=== PATIENT | male | born 1955 | race Caucasian/White ===

== ENCOUNTER 2017-02-05 09:14 | Inpatient (IN) | payer OTHER ==
[~2017-02-05] VITALS: Ht 167.6 cm; Wt 63.5 kg
[~2017-02-05 09:14] MED LIST: BENA20TA10 PO; CLON0.1T79 PO; DIVA250T PO; FOLI1TAB19 PO; ORE25 PO; PANT40EC PO; TOP100 PO; [UNRECOGNIZED DRUG - CODE] PO
--- NOTE | 2017-02-05 09:14 | NUR ---
PT BIBA TO BED 4 AT THIS TIME.
[2017-02-05 09:23] VITALS: BP 113/69
[2017-02-05] MEDS ORDERED: BACL10TA4 PO (09:26)
[2017-02-05] MEDS ORDERED: CALC650T90 PO (09:26)
[2017-02-05] MEDS ORDERED: HYDR-2912 PO (09:28)
[2017-02-05] MEDS ORDERED: ORE25 PO ×2 (09:28→13:46)
[2017-02-05] MEDS ORDERED: IBUP-1842 PO (09:29)
[2017-02-05] MEDS ORDERED: QUET200T PO (09:30)
[2017-02-05] MEDS ORDERED: METO25TA PO ×2 (09:30→13:46)
[2017-02-05] MEDS ORDERED: VITD1000 PO (09:31)
--- NOTE | 2017-02-05 09:33 | NUR ---
Note undone in EDM - 02/05/17 at 0956 by CAMILO PATIENT PRESENTS TO ED PER ELECTROPLATING TECHNICIAN PATIENT FELL BACKWARDS WHILE WALKING OUTSIDE FACILITY. NO LOC,ABRASION LT. SIDE HEAD AND LT. FOREARM.BP FIELD 73/60 NSS 500 IVF BOLUS,BP 105/62. BS FIELD 99. NEG. MLAPSS.SB FIELD HR 48.HX: MILD MR,HTN,,DEPRESSION,EPILEPSY. FROM [facility] . DENIES N/V/D; SKIN IS PINK/WARM/DRY; AAOX4 WITH EVEN AND STEADY GAIT; LUNGS CLEAR BL; HR EVEN AND REGULAR; PT DENIES ANY FEVER, CP, SOB, OR COUGH AT THIS TIME; PATIENT STATES PAIN OF 0/10 AT THIS TIME; VSS; PATIENT POSITIONED FOR COMFORT; HOB ELEVATED; BEDRAILS UP X2; BED DOWN. ER MD MADE AWARE OF PT STATUS.
--- NOTE | 2017-02-05 09:33 | NUR ---
PATIENT PRESENTS TO ED PER SITE IDENTIFICATION SPECIALIST PATIENT FELL BACKWARDS WHILE WALKING OUTSIDE FACILITY. NO LOC,ABRASION LT. SIDE HEAD AND LT. FOREARM.BP FIELD 73/60 NSS 500 IVF BOLUS,BP 105/62. BS FIELD 99. NEG. MLAPSS.SB FIELD HR 48.HX: MILD MR,HTN,,DEPRESSION,EPILEPSY. FROM [facility] . DENIES N/V/D; SKIN IS PINK/WARM/DRY; AAOX4 BIB EMS; LUNGS CLEAR BL; HR EVEN AND REGULAR; PT DENIES ANY FEVER, CP, SOB, OR COUGH AT THIS TIME; PATIENT STATES PAIN OF 0/10 AT THIS TIME; VSS; PATIENT POSITIONED FOR COMFORT; HOB ELEVATED; BEDRAILS UP X2; BED DOWN. ER MD MADE AWARE OF PT STATUS.
[2017-02-05] MEDS ORDERED: NACL 0.9% 1,000 ML IV ONE (09:45)
--- NOTE | 2017-02-05 09:55 | NUR ---
[facility]
[2017-02-05 09:58] LABS: BASOPHILS # (AUTO) 0.2 K/uL (0.00-0.22); BASOPHILS % (AUTO) 3.2 % (0.0-2.0); EOSINOPHILS # (AUTO) 0.1 K/uL (0-0.4); EOSINOPHILS % (AUTO) 1.6 % (0.0-4.0); HEMATOCRIT 37.7 % (36-52); HEMOGLOBIN 12.2 g/dL (12.0-18.0); LYMPHOCYTES # (AUTO) 1.7 K/uL (2.0-11.5); LYMPHOCYTES % (AUTO) 27.7 % (20.5-51.1); MEAN CORPUSCULAR HEMOGLOBIN 29 pg (27-31); MEAN CORPUSCULAR HGB CONC 32 g/dL (33-37); MEAN CORPUSCULAR VOLUME 90 fL (80-94); MONOCYTES # (AUTO) 0.2 K/uL (0.8-1.0); MONOCYTES % (AUTO) 3.8 % (1.7-9.3); NEUTROPHILS # (AUTO) 4.1 K/uL (1.8-7.7); NEUTROPHILS % (AUTO) 63.7 % (42.2-75.2); PLATELET COUNT (AUTO) 129 K/uL (140-450); RED BLOOD CELL COUNT(AUTO) 4.18 MIL/uL (4.20-6.10); RED CELL DISTRIBUTION WIDTH 13.2 % (11.6-13.7); WHITE BLOOD COUNT (AUTO) 6.3 K/uL (4.8-10.8)
[2017-02-05 10:19] LABS: ALBUMIN 3.1 g/dL (3.4-5.0); ANION GAP 11.1 (8-16); CARBON DIOXIDE 28.6 mmol/L (21-32); TOTAL BILIRUBIN 0.3 mg/dL (0.0-1.0)
[2017-02-05 10:21] LABS: POTASSIUM 2.7 mmol/L (3.5-5.1)
[2017-02-05] MEDS ORDERED: POTASSIUM CHLORIDE 20% 40 MEQ/15 ML UDC PO ONE (10:45)
--- NOTE | 2017-02-05 11:32 | NUR ---
RN UNAVAILABLE FOR REPORT AT THIS TIME
[2017-02-05 11:33] LABS: APPEARANCE,URINE CLEAR (CLEAR); BILIRUBIN,URINE NEGATIVE (NEGATIVE); BLOOD, URINE NEGATIVE (NEGATIVE); COLOR,URINE YELLOW (YELLOW); LEUKOCYTE ESTERASE ,URINE NEGATIVE (NEGATIVE); NITRITE, URINE NEGATIVE (NEGATIVE); PH,URINE 7.5 (5.0-9.0); UGLUCOSE NEGATIVE (NEGATIVE)
[2017-02-05] MEDS ORDERED: HYDROcodone/APAP 7.5/325 MG 1 TAB PO PRN (11:50)
[2017-02-05] MEDS ORDERED: ONDANSETRON 4 MG/2 ML VIAL IVP PRN (11:50)
[2017-02-05] MEDS ORDERED: LORazepam 2 MG/ML VIAL IM/IVP PRN (11:50)
[2017-02-05] MEDS ORDERED: ACETAMINOPHEN 325 MG TAB PO PRN (11:50)
[2017-02-05 12:00] LABS: BARBITURATE, URINE NEG. ng/ml (NEG <=200); BENZODIAZEPINE, URINE NEG. ng/mL (NEG <=200); CANNABINOID, URINE NEG. ng/mL (NEG <=50); COCAINE, URINE NEG. ng/mL (NEG <=300); OPIATE, URINE NEG. ng/mL (NEG <=2000); PHENCYCLIDINE SCREEN,URINE NEG. ng/mL (NEG <=25)
--- NOTE | 2017-02-05 12:04 | NUR ---
Patient will be admitted to care of DR EDGAR. Admited to TELE. Will go to room 124B. Belongings list completed. Report to LUIS DEL TORO.
[2017-02-05 12:20] VITALS: BP 134/85
[2017-02-05] MEDS: NACL 0.9% 1,000 ML IV SCH ×2 (12:20→21:46)
--- NOTE | 2017-02-05 12:25 | NUR ---
PATIENT ADMITTED TO THE UNIT FROM ER. PATIENT AWAKE, ALERT AND ORIENTED. PATIENT ON ROOM AIR. NO SOB, NO S/S OF DISTRESS NOTED. PATIENT DENIES ANY PAIN. PATIENT REPORTS OF BEING DROWSY. VSS WITHIN NORMAL LIMITS. ABRASION NOTED TO THE BACK OF THE HEAD. ABRASION OPEN TO AIR. NO DRAINAGE OR BLEEDING NOTED. PATIENT PLACED ON TELE MONITORING. BED LOWERED WITH CALL LIGHT WITHIN REACH. WILL CONTINUE TO MONITOR
[2017-02-05 12:27] LABS: FREE T4 (FREE THYROXINE) 0.78 ng/dL (0.76-1.46); PHOSPHORUS 3.1 mg/dL (2.5-4.9); THYROID STIMULATING HORMONE 3.3 uIU/mL (0.34-3.74)
--- NOTE | 2017-02-05 13:10 | NUR ---
PATIENT TOLERATED REGULAR DIET WELL. NO S/S OF DISTRESS NOTED
[2017-02-05] MEDS ORDERED: IBUPROFEN 400 MG TAB PO PRN (13:30)
[2017-02-05] MEDS ORDERED: TOP100 PO ×3 (13:42→13:43)
[2017-02-05] MEDS ORDERED: PANT20EC12 PO (13:44)
[2017-02-05] MEDS ORDERED: BENA40TA PO (13:44)
[2017-02-05] MEDS ORDERED: CLON0.2T43 PO (13:46)
[2017-02-05] MEDS ORDERED: MECLIZINE 25 MG TAB PO PRN (14:25)
--- NOTE | 2017-02-05 15:45 | NUR ---
PATIENT ASLEEP IN BED. NO S/S OF DISTRESS NOTED
[2017-02-05 16:00] VITALS: BP 166/81
[2017-02-05] MEDS: TOPIRAMATE 25 MG TAB PO SCH (17:24)
[2017-02-05] MEDS: cloNIDine 0.1 MG TAB PO SCH (17:25)
[2017-02-05] MEDS: CALCIUM CARBONATE 500 MG TAB.CHEW PO SCH (17:26)
--- NOTE | 2017-02-05 19:32 | NUR ---
PATIENT REPORT GIVEN AT BEDSIDE. PATIENT ENDORSED IN STABLE CONDITION
--- NOTE | 2017-02-05 19:33 | NUR ---
RECD. RESTING IN BED, AWAKE, A/OX2, RESPIRATION EVEN AND UNLABORED. IV OF NS AT 100 ML/HR INFUSING, LEFT ARM G20. WHEN ASKED HOW HE IS, STATED TIRED. SEEMS DROWSY. PLAN OF CARE FOR THE SHIFT DISCUSSED. JUST NOD HEAD, AND WENT BACK TO SLEEP. SAFETY MEASURES ENFORCED. DENIES PAIN 0/10.
[2017-02-05 20:00] VITALS: BP 105/69
[2017-02-05] MEDS: METOPROLOL 25 MG TAB PO SCH (21:00)
[2017-02-05] MEDS: DOCUSATE SODIUM 100 MG GELCAP PO SCH (21:16)
[2017-02-05] MEDS: DIVALPROEX 500 MG TABEC PO SCH (21:16)
--- NOTE | 2017-02-05 21:16 | NUR ---
DUE PO MEDICATIONS GIVEN, TOLERATED WELL.
[2017-02-05] MEDS: QUEtiapine FUMARATE 100 MG TAB PO SCH (21:17)
[2017-02-05] MEDS: TOPIRAMATE 100 MG TAB PO SCH (21:17)
--- NOTE | 2017-02-05 22:00 | NUR ---
SLEEPING COMFORTABLY IN BED.
[2017-02-06] VITALS: BP 113/69
--- NOTE | 2017-02-06 | NUR ---
SLEEPING MOST OF THE TIME BUT EASILY WAKES UP WHEN WAKEN UP.
[2017-02-06] MEDS: NACL 0.9% 1,000 ML IV SCH (00:55)
[2017-02-06 04:00] VITALS: BP 148/81
--- NOTE | 2017-02-06 04:00 | NUR ---
SLEEPING COMFORTABLY IN BED, NO COMPLAINT OF PAIN 0/10.
[2017-02-06] MEDS: PANTOPRAZOLE 40 MG TABEC PO SCH (06:15)
--- NOTE | 2017-02-06 06:15 | NUR ---
AWAKE IN BED, CONDITION REMAIN STABLE. SAFETY MAINTAINED DURING SHIFT. WILL ENDORSE TO AM NURSE FOR CONTINUITY OF CARE.
--- NOTE | 2017-02-06 07:05 | NUR ---
RECEIVED REPORT FROM PAINTER INTERIOR FINISH NURSE AT BEDSIDE FOR CONTINUITY OF CARE. PT IS AWAKE AND ORIENTED. INTRODUCED SELF AND UPDATED BOARD. WILL CONTINUE WITH CURRENT PLAN OF CARE AND MONITOR PT.
[2017-02-06 07:24] LABS: BASOPHILS # (AUTO) 0.1 K/uL (0.00-0.22); BASOPHILS % (AUTO) 1.3 % (0.0-2.0); EOSINOPHILS # (AUTO) 0.2 K/uL (0-0.4); EOSINOPHILS % (AUTO) 1.7 % (0.0-4.0); HEMATOCRIT 39.6 % (36-52); HEMOGLOBIN 13.4 g/dL (12.0-18.0); LYMPHOCYTES # (AUTO) 1.4 K/uL (2.0-11.5); LYMPHOCYTES % (AUTO) 14.9 % (20.5-51.1); MEAN CORPUSCULAR HEMOGLOBIN 30 pg (27-31); MEAN CORPUSCULAR HGB CONC 34 g/dL (33-37); MEAN CORPUSCULAR VOLUME 90 fL (80-94); MONOCYTES # (AUTO) 0.5 K/uL (0.8-1.0); MONOCYTES % (AUTO) 5.5 % (1.7-9.3); NEUTROPHILS # (AUTO) 7.4 K/uL (1.8-7.7); NEUTROPHILS % (AUTO) 76.6 % (42.2-75.2); PLATELET COUNT (AUTO) 102 K/uL (140-450); RED CELL DISTRIBUTION WIDTH 13.4 % (11.6-13.7)
[2017-02-06 07:31] LABS: CHOL/HDL RATIO 4.5 (1-4.5); MAGNESIUM 1.9 mg/dL (1.8-2.4); PHOSPHORUS 2.2 mg/dL (2.5-4.9)
[2017-02-06 07:36] LABS: ANION GAP 13.2 (8-16); CARBON DIOXIDE 26.1 mmol/L (21-32); CREATININE 0.9 mg/dL (0.7-1.3); POTASSIUM 3.3 mmol/L (3.5-5.1)
[2017-02-06 08:00] VITALS: BP 165/96
[2017-02-06] MEDS ORDERED: NACL 0.45% 1,000 ML IV SCH (08:15)
[2017-02-06 08:35] LABS: WHITE BLOOD COUNT (AUTO) 9.6 K/uL (4.8-10.8)
[2017-02-06] MEDS ORDERED: POTASSIUM CHLORIDE 40 MEQ, LIDOCAINE 1% 25 MG in NACL 0.9% 250 ML IV SCH (10:00)
[2017-02-06] MEDS: CALCIUM CARBONATE 500 MG TAB.CHEW PO SCH ×3 (10:35→17:34)
[2017-02-06] MEDS: DOCUSATE SODIUM 100 MG GELCAP PO SCH ×2 (10:36→20:49)
[2017-02-06] MEDS: DIVALPROEX 500 MG TABEC PO SCH ×2 (10:36→20:55)
[2017-02-06] MEDS: CHOLECALCIFEROL 1,000 IU TAB PO SCH (10:36)
[2017-02-06] MEDS: TOPIRAMATE 25 MG TAB PO SCH ×3 (10:37→17:33)
[2017-02-06] MEDS: BENAZEPRIL 20 MG TAB PO SCH (10:37)
[2017-02-06] MEDS: METOPROLOL 25 MG TAB PO SCH ×2 (10:37→20:50)
[2017-02-06] MEDS ORDERED: SODIUM PHOS / POTASSIUM PHOS 1 PKT PDR PO SCH (11:00)
[2017-02-06 12:00] VITALS: BP 176/100
[2017-02-06] MEDS ORDERED: hydrALAZINE 20 MG/ML VIAL IVP PRN (14:50)
--- NOTE | 2017-02-06 15:10 | NUR ---
CHECKED PT'S BP 176/100. ADMINISTERED APRESOLINE FOR INCREASED BP. PT TOLERATED WELL. PT IS RESTING IN BED NOW. NO COMPLAINTS AT THIS TIME WILL CONTINUE TO MONITOR BP AND PT.
[2017-02-06 16:00] VITALS: BP 154/98
[2017-02-06] MEDS: cloNIDine 0.1 MG TAB PO SCH (17:33)
--- NOTE | 2017-02-06 18:03 | NUR ---
PT COMPLAINED OF HEADACHE. STATED HE LEFT HIS GLASSES AT [facility] WHICH IS CAUSING HIM TO HAVE A HEADACHE. CALLED PT'S CANNED FOOD RECONDITIONING INSPECTOR KATIE TO BRING HIS GLASSES TOMORROW FROM [facility]. PT AWARE. ADMINISTERED TYLENOL FOR HEADACHE. PT TOLERATED MED WELL. WILL CONTINUE TO MONITOR.
--- NOTE | 2017-02-06 19:20 | NUR ---
ENDORSED PT TO CERAMIC TILE INSTALLER NURSE AT BEDSIDE FOR CONTINUITY OF CARE. PT IS IN STABLE CONDITION.
--- NOTE | 2017-02-06 19:30 | NUR ---
RECEIVED REPORT FROM DAY RN AT BEDSIDE, PATIENT IS AAOX2 ON ROOM AIR, NO SOB OR SIGN OF DISTRESS. IV TO LEFT FA PATENT AND INTACT. SKIN WITH ABRASION TO BACK OF HEAD PROCED TECH. PATIENT DENIES PAIN AT THIS TIME, DISCUSSED PLAN OF CARE WITH PATIENT , PATIENT VERBALIZED UNDERSTANDING, REINFORCEMENT NEEDED. CALL LIGHT WITHIN REACH. WILL CONTINUE TO MONITOR
[2017-02-06 20:00] VITALS: BP 158/89
[2017-02-06] MEDS: TOPIRAMATE 100 MG TAB PO SCH (20:49)
[2017-02-06] MEDS: QUEtiapine FUMARATE 100 MG TAB PO SCH (20:50)
--- NOTE | 2017-02-06 20:58 | NUR ---
PM MEDS ADMINISTERED, PATIENT TOLERATED WELL, CALL LIGHT WITHIN REACH. WILL CONTINUE TO MONITOR
[2017-02-07] VITALS: BP 154/90
--- NOTE | 2017-02-07 | NUR ---
VITAL SIGNS STABLE, NO SIGN OF DISTRESS, CALL LIGHT WITHIN REACH. WILL CONTINUE TO MONITOR
--- NOTE | 2017-02-07 02:20 | NUR ---
PATIENT SLEEPING, NO SIGN OF DISTRESS, CALL LIGHT WITHIN REACH. WILL CONTINUE TO MONITOR.
[2017-02-07 04:00] VITALS: BP 150/91
--- NOTE | 2017-02-07 04:22 | NUR ---
VITAL SIGNS STABLE, IV TO LEFT FA CAME OUT WHEN PT SLEEPING, STARTED NEW IV TO LEFT FA 20. PATIENT TOLERATED WELL. CALL LIGHT WITHIN REACH. WILL CONTINUE TO MONITOR
[2017-02-07] MEDS: PANTOPRAZOLE 40 MG TABEC PO SCH (05:51)
[2017-02-07 06:46] LABS: BASOPHILS # (AUTO) 0.1 K/uL (0.00-0.22); EOSINOPHILS # (AUTO) 0.1 K/uL (0-0.4); EOSINOPHILS % (AUTO) 0.9 % (0.0-4.0); HEMOGLOBIN 13.7 g/dL (12.0-18.0); LYMPHOCYTES # (AUTO) 2.1 K/uL (2.0-11.5); LYMPHOCYTES % (AUTO) 14.4 % (20.5-51.1); MEAN CORPUSCULAR HEMOGLOBIN 31 pg (27-31); MEAN CORPUSCULAR HGB CONC 34 g/dL (33-37); MEAN CORPUSCULAR VOLUME 90 fL (80-94); MONOCYTES # (AUTO) 0.7 K/uL (0.8-1.0); NEUTROPHILS # (AUTO) 11.5 K/uL (1.8-7.7); NEUTROPHILS % (AUTO) 78.7 % (42.2-75.2); PLATELET COUNT (AUTO) 153 K/uL (140-450); RED BLOOD CELL COUNT(AUTO) 4.47 MIL/uL (4.20-6.10); RED CELL DISTRIBUTION WIDTH 13.1 % (11.6-13.7); WHITE BLOOD COUNT (AUTO) 14.5 K/uL (4.8-10.8)
--- NOTE | 2017-02-07 07:16 | NUR ---
ENDORSED PATIENT TO DAY RN AT BEDSIDE, PATIENT IN STABLE CONDITION
--- NOTE | 2017-02-07 07:17 | NUR ---
RECEIVED REPORT FROM HOME DEPOT REP NURSE AT BEDSIDE FOR CONTINUITY OF CARE. PT IS AWAKE AND ORIENTED. INTRODUCED SELF AND UPDATED BOARD. PT'S VS: WNL. PT IS ON RA. NO SOB RESPIRATORY DISTRESS NOTED. PT DENIES CHEST PAIN OR HEADACHE. IV IS SL ON LEFT FA 20G. PT HAS TWO ABRASIONS ON BACK OF HEAD. PARAPROFESSIONAL EDUCATION ASSISTANT. PT USED URINAL AT BEDSIDE. 150ML VOIDED. PT HAS NO COMPLAINTS AT THIS TIME WILL CONTINUE TO MONITOR.
[2017-02-07 07:48] LABS: ANION GAP 14.3 (8-16); CARBON DIOXIDE 24.3 mmol/L (21-32); CREATININE 0.9 mg/dL (0.7-1.3); POTASSIUM 3.6 mmol/L (3.5-5.1)
[2017-02-07 07:55] LABS: MAGNESIUM 1.8 mg/dL (1.8-2.4); PHOSPHORUS 3.4 mg/dL (2.5-4.9)
[2017-02-07 08:00] VITALS: BP 126/79
[2017-02-07] MEDS ORDERED: ATORVASTATIN 20 MG TAB PO SCH (09:00)
[2017-02-07] MEDS ORDERED: HYDROCHLOROTHIAZIDE 25 MG TAB PO SCH (09:00)
[2017-02-07] MEDS ORDERED: ATOR20TA40 PO (09:09)
[2017-02-07] MEDS ORDERED: DIVA500E1 PO (09:09)
[2017-02-07] MEDS: TOPIRAMATE 25 MG TAB PO SCH ×2 (09:19→12:58)
[2017-02-07] MEDS: DOCUSATE SODIUM 100 MG GELCAP PO SCH (09:19)
[2017-02-07] MEDS: DIVALPROEX 500 MG TABEC PO SCH (09:19)
[2017-02-07] MEDS: CALCIUM CARBONATE 500 MG TAB.CHEW PO SCH ×2 (09:19→12:58)
[2017-02-07] MEDS: METOPROLOL 25 MG TAB PO SCH (09:20)
[2017-02-07] MEDS: BENAZEPRIL 20 MG TAB PO SCH (09:20)
[2017-02-07] MEDS: CHOLECALCIFEROL 1,000 IU TAB PO SCH (09:20)
[2017-02-07 12:00] VITALS: BP 152/99
--- NOTE | 2017-02-07 12:00 | NUR ---
ADMINISTERED SCHEDULED MEDS TO PT. PT TOLERATED WELL. PT WAS EATING LUNCH TRAY. TOLERATED WELL. DENIES PAIN. NO COMPLAINTS AT THIS TIME WILL CONTINUE TO MONITOR.
--- NOTE | 2017-02-07 15:20 | NUR ---
PT D/C TO BOARD AND LONG TERM. LEFT VIA WHEELCHAIR ACCOMPANIED BY RN, HOSPITAL NURSE LIAISON AND VISITOR. IV CATHETER REMOVED FROM LEFT FA. IV CATHETER TIP INTACT. APPLIED PRESSURE TO SITE. NO BLEEDING NOTED. REMOVED MONITOR AND ID BANDS. PT DRESSED IN OWN CLOTHES AND LEFT WITH ALL PERSONAL BELONGINGS. LEFT IN STABLE CONDITION.
== END 2017-02-07 15:20 | DRG 73 ==
LOC: MED 09:14 → MTU 11:26
PROVIDERS: ADMIT Student in an Organized Health Care Education/Training Program; ATTEND Student in an Organized Health Care Education/Training Program
DX: G90.9 Disorder of the autonomic nervous system, unspecified (principal); N17.0 Acute kidney failure with tubular necrosis; E87.0 Hyperosmolality and hypernatremia; E44.0 Moderate protein-calorie malnutrition; S09.90XA Unspecified injury of head, initial encounter; E83.39 Other disorders of phosphorus metabolism; G40.909 Epilepsy, unspecified, not intractable, without status epilepticus; E87.6 Hypokalemia; I10 Essential (primary) hypertension; F31.9 Bipolar disorder, unspecified; K21.9 Gastro-esophageal reflux disease without esophagitis; X58.XXXA Exposure to other specified factors, initial encounter; E78.5 Hyperlipidemia, unspecified; S50.812A Abrasion of left forearm, initial encounter; E86.0 Dehydration; Z68.22 Body mass index [BMI] 22.0-22.9, adult; Y93.89 Activity, other specified; Y92.89 Other specified places as the place of occurrence of the external cause; Y99.8 Other external cause status
CPT/HCPCS: 36415; 70450; 71010; 80048; 80053; 80305; 81003; 82140; 83036; 83735; 83880; 84100; 84439; 84443; 84484; 85025; 85610; 85730; 87081; 93005; 93880; 96360; 96361; 99285; J0360; J2001; J3480; J7030; Q0092

== ENCOUNTER 2023-03-16 10:44 | Inpatient (IN) | payer OTHER ==
[~2023-03-16] VITALS: Ht 177.8 cm; Wt 54.9 kg
[~2023-03-16 10:44] MED LIST changes: +ATOR20TA40 PO; -BENA20TA10 PO; +BENA40TA PO; +CHOL100084 PO; +CLON-1170 PO; -CLON0.1T79 PO; -DIVA250T PO; +DIVA500E1 PO; -FOLI1TAB19 PO; +IBUP-1842 PO; +METO25TA PO; +PANT20EC18 PO; -PANT40EC PO; +QUET200T PO; +[UNRECOGNIZED DRUG - CODE] PO; -[UNRECOGNIZED DRUG - CODE] PO
[2023-03-16 10:47] VITALS: BP 87/56; PULSE 78; RESP 18; TEMP 96.8; O2SAT 97
[2023-03-16] MEDS ORDERED: NACL 0.9% 1,000 ML IV SCH (11:05)
[2023-03-16 11:47] LABS: BASOPHILS % (AUTO) 0.5 % (0.0-2.0); EOSINOPHILS # (AUTO) 0.1 K/uL (0-0.4); EOSINOPHILS % (AUTO) 1.8 % (0.0-4.0); HEMATOCRIT 30.5 % (36-52); HEMOGLOBIN 10.3 g/dL (12.0-18.0); LYMPHOCYTES # (AUTO) 1.1 K/uL (2.0-11.5); LYMPHOCYTES % (AUTO) 18.9 % (20.5-51.1); MEAN CORPUSCULAR HEMOGLOBIN 32 pg (27-31); MEAN CORPUSCULAR HGB CONC 34 g/dL (33-37); MEAN CORPUSCULAR VOLUME 95.2 fL (80-94); MONOCYTES # (AUTO) 0.4 K/uL (0.8-1.0); NEUTROPHILS # (AUTO) 4.2 K/uL (1.8-7.7); NEUTROPHILS % (AUTO) 71.8 % (42.2-75.2); PLATELET COUNT (AUTO) 70 K/uL (140-450); RED CELL DISTRIBUTION WIDTH 14.7 % (11.6-13.7); WHITE BLOOD COUNT (AUTO) 5.9 K/uL (4.8-10.8)
[2023-03-16 12:01] LABS: ALBUMIN 3.2 g/dL (3.4-5.0); CARBON DIOXIDE 23.1 mmol/L (21-32); CREATININE 1.5 mg/dL (0.6-1.3); POTASSIUM 5.1 mmol/L (3.5-5.1); TOTAL BILIRUBIN 0.2 mg/dL (0.0-1.0); TOTAL PROTEIN, SERUM 5.8 g/dL (6.4-8.2)
[2023-03-16 12:04] LABS: CREATINE KINASE, TOTAL 45 U/L (39-308)
[2023-03-16 12:11] LABS: LACTIC ACID 2.9 mmol/L (0.4-2.0)
[2023-03-16 12:22] LABS: APPEARANCE,URINE CLEAR (CLEAR); BILIRUBIN,URINE NEGATIVE (NEGATIVE); BLOOD, URINE NEGATIVE (NEGATIVE); COLOR,URINE YELLOW (YELLOW); LEUKOCYTE ESTERASE ,URINE NEGATIVE (NEGATIVE); NITRITE, URINE NEGATIVE (NEGATIVE); PROTEIN,URINE NEGATIVE (NEGATIVE); UGLUCOSE NEGATIVE (NEGATIVE); UROBILINOGEN,URINE 0.2 EU/dL (0.2 - 1)
[2023-03-16] MEDS ORDERED: cefTRIAXone 1,000 MG VIAL ONE (12:36)
[2023-03-16] MEDS ORDERED: ONDANSETRON 4 MG/2 ML VIAL IM/IVP PRN (14:05)
[2023-03-16] MEDS ORDERED: POTASSIUM CHLORIDE 10 MEQ TABER PO PRN (14:05)
[2023-03-16] MEDS ORDERED: DOCUSATE SODIUM 100 MG GELCAP PO PRN (14:05)
[2023-03-16] MEDS ORDERED: HYDROcodone/APAP 7.5/325 MG 1 TAB PO PRN (14:05)
[2023-03-16] MEDS ORDERED: ZOLPIDEM 5 MG TAB PO PRN (14:05)
[2023-03-16] MEDS ORDERED: guaiFENesin DM 200/20 MG-10 ML 10 ML UDC PO PRN (14:05)
[2023-03-16] MEDS ORDERED: ACETAMINOPHEN 325 MG TAB PO PRN (14:05)
[2023-03-16 14:39] LABS: CHOL/HDL RATIO 2.7 (1-4.5); FREE T4 (FREE THYROXINE) 0.69 ng/dL (0.76-1.46); MAGNESIUM 1.2 mg/dL (1.8-2.4); PHOSPHORUS 3.1 mg/dL (2.5-4.9); THYROID STIMULATING HORMONE 3.71 uIU/mL (0.34-3.74)
[2023-03-16] MEDS: NACL 0.9% 1,000 ML IV SCH (14:42)
[2023-03-16 14:46] LABS: INR 1.02 (0.8-1.2); PARTIAL THROMBOPLASTIN TIME 25.6 secs (22-35.6); PROTHROMBIN TIME 10.7 secs (10.8-13.4)
[2023-03-16 17:30] VITALS: PULSE 75; RESP 13; O2SAT 99
[2023-03-16] MEDS ORDERED: MAG SULF 2000 MG/WATER PREMIX 50 ML IV ONE (19:25)
[2023-03-16 20:00] VITALS: BP 98/58; PULSE 68; PULSE 71; RESP 18; TEMP 97; O2SAT 98
[2023-03-17] VITALS: BP 105/71; PULSE 73; PULSE 75; RESP 18; TEMP 97.8; O2SAT 96
[2023-03-17] MEDS: NACL 0.9% 1,000 ML IV SCH ×3 (00:37→20:36)
[2023-03-17 04:00] VITALS: BP 104/63; PULSE 80; PULSE 84; RESP 18; TEMP 98.2; O2SAT 96
[2023-03-17 07:04] LABS: BASOPHILS % (AUTO) 0.2 % (0.0-2.0); EOSINOPHILS # (AUTO) 0.1 K/uL (0-0.4); EOSINOPHILS % (AUTO) 1.1 % (0.0-4.0); HEMATOCRIT 31.8 % (36-52); LYMPHOCYTES # (AUTO) 1.3 K/uL (2.0-11.5); LYMPHOCYTES % (AUTO) 14.1 % (20.5-51.1); MEAN CORPUSCULAR HEMOGLOBIN 33 pg (27-31); MEAN CORPUSCULAR HGB CONC 35 g/dL (33-37); MEAN CORPUSCULAR VOLUME 94.4 fL (80-94); MONOCYTES # (AUTO) 0.6 K/uL (0.8-1.0); MONOCYTES % (AUTO) 6.1 % (1.7-9.3); NEUTROPHILS # (AUTO) 7.3 K/uL (1.8-7.7); NEUTROPHILS % (AUTO) 78.5 % (42.2-75.2); PLATELET COUNT (AUTO) 83 K/uL (140-450); RED BLOOD CELL COUNT(AUTO) 3.37 MIL/uL (4.20-6.10); RED CELL DISTRIBUTION WIDTH 14.4 % (11.6-13.7); WHITE BLOOD COUNT (AUTO) 9.3 K/uL (4.8-10.8)
[2023-03-17 07:16] LABS: ANION GAP 14.1 (8-16); CALCIUM 8.6 mg/dL (8.5-10.1); CARBON DIOXIDE 23.7 mmol/L (21-32); CREATININE 1.2 mg/dL (0.6-1.3); POTASSIUM 5.8 mmol/L (3.5-5.1)
[2023-03-17 08:00] VITALS: BP 126/84; PULSE 105; PULSE 78; PULSE 84; RESP 18; TEMP 97.9; O2SAT 99
[2023-03-17] MEDS ORDERED: MAG SULF 2000 MG/WATER PREMIX 50 ML IV PRN (08:00)
[2023-03-17] MEDS ORDERED: PANTOPRAZOLE 40 MG TABEC PO SCH ×2 (09:00→15:37)
[2023-03-17] MEDS ORDERED: ZOLPIDEM 10 MG TAB PO PRN (09:15)
[2023-03-17] MEDS ORDERED: POTASSIUM CHLORIDE 10 MEQ TABER PO PRN ×2 (09:15→16:15)
[2023-03-17] MEDS ORDERED: LORazepam 2 MG/ML VIAL IVP PRN (09:15)
[2023-03-17] MEDS ORDERED: ONDANSETRON 4 MG/2 ML VIAL IVP PRN (09:15)
[2023-03-17] MEDS ORDERED: DOCUSATE SODIUM 100 MG GELCAP PO PRN ×2 (09:15→16:15)
[2023-03-17] MEDS ORDERED: ACETAMINOPHEN 325 MG TAB PO PRN ×2 (09:15→16:15)
[2023-03-17] MEDS ORDERED: MORPHINE SULFATE 2 MG/ML SYR IVP PRN ×2 (09:15→16:15)
[2023-03-17] MEDS: DIVALPROEX 500 MG TABEC PO SCH ×2 (09:48→20:34)
[2023-03-17 12:00] VITALS: BP 143/87; PULSE 84; PULSE 98; RESP 18; TEMP 98.2; O2SAT 100
[2023-03-17] MEDS: MAG SULF 2000 MG/WATER PREMIX 50 ML IV PRN (12:58)
[2023-03-17 16:00] VITALS: BP 139/89; PULSE 83; PULSE 85; RESP 16; TEMP 97.8; O2SAT 97
[2023-03-17 19:16] LABS: HEMOGLOBIN A1C 6.9 % (4.8-5.6)
[2023-03-17 19:22] LABS: T4 (THYROXINE) 4.3 ug/dL (4.5 - 12.0)
[2023-03-17 20:00] VITALS: BP 144/88; PULSE 87; PULSE 92; RESP 16; TEMP 97.8; O2SAT 99
[2023-03-18] VITALS (9 sets, daily range): BP systolic 138–174; BP diastolic 79–108; PULSE 76–97; RESP 16–18; TEMP 97–98.7; O2SAT 96–100
[2023-03-18] MEDS ORDERED: hydrALAZINE 10 MG TAB PO SCH ×2 (04:15→08:02)
[2023-03-18 06:41] LABS: BASOPHILS % (AUTO) 0.3 % (0.0-2.0); EOSINOPHILS # (AUTO) 0.1 K/uL (0-0.4); EOSINOPHILS % (AUTO) 0.6 % (0.0-4.0); HEMATOCRIT 36.7 % (36-52); HEMOGLOBIN 12.3 g/dL (12.0-18.0); LYMPHOCYTES # (AUTO) 1.7 K/uL (2.0-11.5); LYMPHOCYTES % (AUTO) 13.2 % (20.5-51.1); MEAN CORPUSCULAR HEMOGLOBIN 32 pg (27-31); MEAN CORPUSCULAR HGB CONC 33 g/dL (33-37); MEAN CORPUSCULAR VOLUME 95.2 fL (80-94); MONOCYTES # (AUTO) 0.6 K/uL (0.8-1.0); MONOCYTES % (AUTO) 4.8 % (1.7-9.3); NEUTROPHILS # (AUTO) 10.6 K/uL (1.8-7.7); NEUTROPHILS % (AUTO) 81.1 % (42.2-75.2); PLATELET COUNT (AUTO) 99 K/uL (140-450); RED BLOOD CELL COUNT(AUTO) 3.86 MIL/uL (4.20-6.10); RED CELL DISTRIBUTION WIDTH 14.6 % (11.6-13.7)
[2023-03-18 06:58] LABS: ANION GAP 13.6 (8-16); CALCIUM 8.6 mg/dL (8.5-10.1); CARBON DIOXIDE 24.8 mmol/L (21-32); CREATININE 1.1 mg/dL (0.6-1.3); POTASSIUM 4.4 mmol/L (3.5-5.1)
[2023-03-18] MEDS ORDERED: PANTOPRAZOLE 40 MG TABEC PO SCH (09:00)
[2023-03-18] MEDS: ONDANSETRON 4 MG/2 ML VIAL IVP PRN ×2 (09:13→16:04)
[2023-03-18] MEDS: MAG SULF 2000 MG/WATER PREMIX 50 ML IV PRN (09:15)
[2023-03-18] MEDS: NACL 0.9% 1,000 ML IV SCH ×2 (09:21→18:45)
[2023-03-18] MEDS: DIVALPROEX 500 MG TABEC PO SCH ×2 (09:23→20:34)
[2023-03-18] MEDS: PANTOPRAZOLE 40 MG TABEC PO SCH (09:23)
[2023-03-18] MEDS ORDERED: METOPROLOL 25 MG TAB PO SCH (11:34)
[2023-03-18] MEDS ORDERED: hydrALAZINE 25 MG TAB PO SCH (13:19)
[2023-03-18] MEDS ORDERED: lisinopriL 20 MG TAB PO SCH (14:50)
[2023-03-18] MEDS ORDERED: BENAZEPRIL 20 MG TAB PO SCH (14:51)
[2023-03-18] MEDS ORDERED: hydroCHLOROthiazide 25 MG TAB PO SCH (14:54)
[2023-03-18] MEDS: METOPROLOL 25 MG TAB PO SCH (20:34)
[2023-03-18] MEDS ORDERED: TOPIRAMATE 100 MG TAB PO SCH (21:00)
[2023-03-18] MEDS ORDERED: QUEtiapine FUMARATE 100 MG TAB PO SCH (21:00)
[2023-03-18] MEDS ORDERED: DIVALPROEX 500 MG TABEC PO SCH (21:00)
[2023-03-19 04:00] VITALS: BP 149/86; PULSE 74; RESP 17; TEMP 97.8; O2SAT 96
[2023-03-19] MEDS: NACL 0.9% 1,000 ML IV SCH ×2 (04:25→07:11)
[2023-03-19 07:09] LABS: ANION GAP 12.1 (8-16); CALCIUM 8.3 mg/dL (8.5-10.1); CARBON DIOXIDE 26.7 mmol/L (21-32); CREATININE 1.1 mg/dL (0.6-1.3); POTASSIUM 4.8 mmol/L (3.5-5.1)
[2023-03-19 07:42] LABS: BASOPHILS % (AUTO) 0.3 % (0.0-2.0); EOSINOPHILS # (AUTO) 0.1 K/uL (0-0.4); HEMATOCRIT 32.4 % (36-52); HEMOGLOBIN 11.1 g/dL (12.0-18.0); LYMPHOCYTES # (AUTO) 2.3 K/uL (2.0-11.5); LYMPHOCYTES % (AUTO) 23.1 % (20.5-51.1); MEAN CORPUSCULAR HEMOGLOBIN 32 pg (27-31); MEAN CORPUSCULAR HGB CONC 34 g/dL (33-37); MEAN CORPUSCULAR VOLUME 94.1 fL (80-94); MONOCYTES # (AUTO) 0.8 K/uL (0.8-1.0); MONOCYTES % (AUTO) 8.3 % (1.7-9.3); NEUTROPHILS # (AUTO) 6.7 K/uL (1.8-7.7); NEUTROPHILS % (AUTO) 67.3 % (42.2-75.2); PLATELET COUNT (AUTO) 91 K/uL (140-450); RED BLOOD CELL COUNT(AUTO) 3.44 MIL/uL (4.20-6.10); RED CELL DISTRIBUTION WIDTH 14.5 % (11.6-13.7); WHITE BLOOD COUNT (AUTO) 9.9 K/uL (4.8-10.8)
[2023-03-19] MEDS: DIVALPROEX 500 MG TABEC PO SCH (08:19)
[2023-03-19] MEDS: METOPROLOL 25 MG TAB PO SCH (08:19)
[2023-03-19] MEDS: PANTOPRAZOLE 40 MG TABEC PO SCH (08:20)
[2023-03-19 08:37] VITALS: PULSE 69; RESP 18; O2SAT 100
[2023-03-19 08:38] VITALS: BP 117/76; PULSE 69; RESP 18; TEMP 97.5; O2SAT 100
[2023-03-19] MEDS ORDERED: BENAZEPRIL 20 MG TAB PO SCH (09:00)
[2023-03-19] MEDS ORDERED: ATORVASTATIN 20 MG TAB PO SCH (09:00)
[2023-03-19] MEDS ORDERED: hydroCHLOROthiazide 25 MG TAB PO SCH (09:00)
[2023-03-19 12:12] VITALS: BP 117/76; PULSE 69; RESP 18; TEMP 97.6
== END 2023-03-19 15:10 | disposition home or self-care (01) | DRG 312 ==
LOC: MED 10:44 → MTU 15:09
PROVIDERS: ADMIT Family Medicine; ATTEND Family Medicine
DX: I95.2 Hypotension due to drugs (principal); N17.9 Acute kidney failure, unspecified; E83.42 Hypomagnesemia; E87.5 Hyperkalemia; F79 Unspecified intellectual disabilities; G40.909 Epilepsy, unspecified, not intractable, without status epilepticus; F32.A Depression, unspecified; I10 Essential (primary) hypertension; Z79.1 Long term (current) use of non-steroidal anti-inflammatories (NSAID); Z79.899 Other long term (current) drug therapy; T50.905A Adverse effect of unspecified drugs, medicaments and biological substances, initial encounter; E86.0 Dehydration
CPT/HCPCS: 36415; 71045; 80048; 80053; 81003; 82150; 82550; 82553; 83036; 83605; 83690; 83735; 83880; 84100; 84436; 84439; 84443; 84479; 84484; 85025; 85610; 85730; 87040; 87086; 93005; 96361; 96374; 99285; J0696; J2405; J3475; Q0092